=== PATIENT | female | born 1975 | race Caucasian/White ===

== ENCOUNTER 2020-07-08 10:50 | Outpatient (CLI) | payer BC | END 2020-07-08 10:51 | disposition home or self-care (01) | LOC: BICMAMMO 10:50 | PROVIDERS: ATTEND Family Medicine | DX: Z12.31 Encounter for screening mammogram for malignant neoplasm of breast (principal); N64.89 Other specified disorders of breast | CPT/HCPCS: 77063; 77067 ==

== ENCOUNTER 2020-07-13 14:35 | Outpatient (CLI) | payer BC | END 2020-07-13 14:36 | disposition home or self-care (01) | LOC: BICULT 14:35 | PROVIDERS: ATTEND Family Medicine | DX: N64.89 Other specified disorders of breast (principal) ==